=== PATIENT | female | born 2005 | race Caucasian/White ===

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

== ENCOUNTER → 2025-02-22 | Outpatient (REF) | payer OTHER | LOC: M SFHCWAGY 12:59 | PROVIDERS: ATTEND Nurse Practitioner Family | DX: Z34.93 Encounter for supervision of normal pregnancy, unspecified, third trimester (principal); Z3A.36 36 weeks gestation of pregnancy ==

== ENCOUNTER 2025-03-11 08:28 | Emergency (ER) | payer OTHER ==
[2025-03-11] MEDS ORDERED: PRENTAB9 PO (10:15)
== END 2025-03-11 11:31 | disposition admitted as inpatient to this hospital (09) ==
LOC: M ED 11:26
DX: Z53.21 Procedure and treatment not carried out due to patient leaving prior to being seen by health care provider (principal)

== ENCOUNTER 2025-03-11 08:35 | Inpatient (IN) | payer OTHER ==
[~2025-03-11] VITALS: Ht 162.6 cm; Wt 92.9 kg
[2025-03-11] VITALS (29 sets, daily range): BP systolic 91–171; BP diastolic 52–95
[2025-03-11] MEDS ORDERED: OXYTOCIN DRIP 30 UNITS in IV 1 EA IV PRN (10:10)
[2025-03-11] MEDS ORDERED: LIDOCAINE 1% MDV 20 ML VIAL INFIL PRN (10:10)
[2025-03-11] MEDS ORDERED: HOME MED LIST COMPLETE! XX SCH (10:15)
[2025-03-11] MEDS ORDERED: PRENTAB9 PO (10:15)
[2025-03-11] MEDS: miSOPROStol 50 MCG 1/2 TABLET SL SCH (10:58)
[2025-03-11 11:20] LABS: PLATELET COUNT, AUTOMATED 290 10^3/uL (150-450)
[2025-03-11 12:03] LABS: HIV 1&2 SCREEN NEGATIVE (NEGATIVE)
[2025-03-11 13:19] LABS: HEPATITIS C VIRUS ABY INDEX < 0.02 INDEX (<0.8)
[2025-03-11] MEDS: PROMETHAZINE 25MG/ML 1ML VIAL IM ONE (13:45)
[2025-03-11] MEDS: BUTORPHANOL 2 MG/ML 1 ML VIAL IV ONE (14:09)
[2025-03-11] MEDS: LR 1,000 ML IV SCH (14:27)
[2025-03-11] MEDS: PROMETHAZINE 25MG/ML 1ML VIAL IV ONE (14:27)
[2025-03-11] MEDS: FENTANYL/ROPIVACAINE/NACL BAG 100 ML EPIDURAL SCH (17:55)
[2025-03-11] MEDS ORDERED: EPIDURAL/PCA KEYS XX PRN (17:55)
[2025-03-11] MEDS ORDERED: NALOXONE INJ 0.4 MG/1 ML VIAL IV PRN (17:55)
[2025-03-11] MEDS ORDERED: LR 500 ML IV PRN (17:55)
[2025-03-11] MEDS ORDERED: ONDANSETRON 4MG 2ML VIAL IV PRN (17:55)
[2025-03-11] MEDS ORDERED: diphenhydrAMINE 50 MG/ML VIAL IV PRN (17:55)
[2025-03-11] MEDS: OXYTOCIN DRIP 30 UNITS in IV 1 EA IV SCH (20:09)
[2025-03-12] VITALS (10 sets, daily range): BP systolic 120–158; BP diastolic 73–98; O2SAT 98
[2025-03-12] MEDS ORDERED: METHYLERGONOVINE MALEATE 0.2 MG TAB PO PRN (02:15)
[2025-03-12] MEDS ORDERED: IBUPROFEN 800 MG TAB PO PRN (02:15)
[2025-03-12] MEDS ORDERED: IBUPROFEN 600 MG TAB PO PRN (02:15)
[2025-03-12] MEDS ORDERED: ACETAMINOPHEN 500 MG TAB PO PRN (02:15)
[2025-03-12] MEDS ORDERED: ACETAMINOPHEN 325 MG TAB PO PRN (02:15)
[2025-03-12] MEDS: PRENATAL VITAMINS CHEWABLE TABLET PO SCH (08:03)
[2025-03-12] MEDS: DOCUSATE SODIUM 100 MG CAPSULE PO PRN (08:03)
[2025-03-12] MEDS: DIBUCAINE 1% OINTMENT 30 GM TOP PRN (08:04)
[2025-03-12 19:14] LABS: PLATELET COUNT, AUTOMATED 250 10^3/uL (150-450)
[2025-03-12 19:49] LABS: LDH LACTATE DEHYDROGENASE 259 U/L (120-246)
[2025-03-12 19:50] LABS: ALT/SGPT 19 U/L (7.0-40); AST/SGOT 31 U/L (<34); CREATININE FOR GFR 0.59 MG/DL (0.55-1.30); GLOMERULAR FILTRATION RATE > 90.0 (>60)
[2025-03-13 01:56] VITALS: BP 127/75
[2025-03-13 05:56] VITALS: BP 138/78; O2SAT 98
[2025-03-13] MEDS: RHOGAM 300MCG (1500IU) INJ IM SCH (07:05)
[2025-03-13 10:07] VITALS: BP 131/84; O2SAT 96
[2025-03-13] MEDS: MEASLES,MUMPS,RUBELLA VACCINE INJ (MMR-II) SC.IMMUN ONE (11:00)
== END 2025-03-13 14:47 | disposition home or self-care (01) | DRG 560 ==
LOC: M LDO 08:35 → EEVIPCON 10:03 → M LDI 10:03 → M OBS 03-12 03:57
PROVIDERS: ADMIT Specialist; ATTEND Specialist
PROC: 3E033VJ Introduction of Other Hormone into Peripheral Vein, Percutaneous Approach (ICD-10-PCS; 2025-03-11)
PROC: 3E0DXGC Introduction of Other Therapeutic Substance into Mouth and Pharynx, External Approach (ICD-10-PCS; 2025-03-11)
PROC: 10E0XZZ Delivery of Products of Conception, External Approach (ICD-10-PCS; principal; 2025-03-12)
DX: O42.02 Full-term premature rupture of membranes, onset of labor within 24 hours of rupture (principal); Z37.0 Single live birth; Z3A.38 38 weeks gestation of pregnancy; O69.82X0 Labor and delivery complicated by other cord entanglement, without compression, not applicable or unspecified